=== PATIENT | female | born 1990 | race Caucasian/White ===

== ENCOUNTER 2019-12-12 19:59 | Emergency (ER) | payer OTHER ==
[2019-12-12 20:09] VITALS: RESP 16
--- NOTE | 2019-12-12 20:22 | ED ---
General Adult HPI <Oleksandr Henning - Last Filed: 12/13/19 05:05> - General Source: patient, EMS, RN notes reviewed, old records reviewed Mode of arrival: EMS Limitations: no limitations <Waldemar Gruber - Last Filed: 12/13/19 23:04> - General Chief complaint: Psychiatric Symptoms Stated complaint: Mental Health Time Seen by Provider: 12/12/19 20:00 - History of Present Illness Initial comments: This is a 29-year-old female who presents emergency Department with a past medical history significant for cocaine abuse alcohol abuse and bipolar. Patient states she hasn't used any cocaine in 6 months. Patient states she did drink today for the first time in 6 months. Patient states she also started taking some medicine last Saturday for her acne and it did say on the label that a side effect is depression. Patient states she has been feeling significantly more depressed over the last 3 days and then when she drank today started having suicidal thoughts and the gaming cage worker was contacted gaming cage worker heard the statements then petitioned the patient to be evaluated. Patient states at the moment she's not sure if she suicidal but she did cut herself superficially on the left forearm with scissors. Patient states she has no physical complaints today. Patient denies any chest pain difficulty breathing shortest breath per patient denies any fever chills or cough. Patient denies any abdominal pain patient denies nausea vomiting diarrhea. Patient states she is not sexually active (Waldemar Tellez) Review of Systems ROS Other: All systems not noted in ROS Statement are negative. <Oleksandr Henning - Last Filed: 12/13/19 05:05> ROS Other: All systems not noted in ROS Statement are negative. <Waldemar Gruber - Last Filed: 12/13/19 23:04> ROS Statement: Those systems with pertinent positive or pertinent negative responses have been documented in the HPI. Past Medical History Past Medical History: No Reported History History of Any Multi-Drug Resistant Organisms: None Reported Past Surgical History: Section Past Psychological History: Anxiety, Bipolar, Depression, PTSD Smoking Status: Smoker, current status unknown Past Alcohol Use History: Rare Past Drug Use History: Cocaine <Waldemar Gruber - Last Filed: 12/13/19 23:04> General Exam Limitations: no limitations <Waldemar Gruber - Last Filed: 12/13/19 23:04> - General Exam Comments Initial Comments: GENERAL: Patient is well-developed and well-nourished. Patient is nontoxic and well- hydrated and is in no acute distress. ENT: Neck is soft and supple. No significant lymphadenopathy is noted. Oropharynx is clear. Moist mucous membranes. Neck has full range of motion without eliciting any pain. EYES: The sclera were anicteric and conjunctiva were pink and moist. Extraocular movements were intact and pupils were equal round and reactive to light. Eye lids were unremarkable. PULMONARY: Unlabored respirations. Good breath sounds bilaterally. No audible rales rhonchi or wheezing was noted. CARDIOVASCULAR: There is a regular rate and rhythm without any murmurs gallops or rubs. ABDOMEN: Soft and nontender with normal bowel sounds. SKIN: Skin is clear with no lesions or rashes and otherwise unremarkable. NEUROLOGIC: Patient is alert and oriented x3. Cranial nerves II through XII are grossly intact. Motor and sensory are also intact. Normal speech, volume and content. Symmetrical smile. MUSCULOSKELETAL: Normal extremities with adequate strength and full range of motion. LYMPHATICS: No significant lymphadenopathy is noted PSYCHIATRIC: Patient is tearful and does state that she is very depressed lately but denies definitively being suicidal at this time. (Waldemar Gruber) Course Vital Signs 12/12/19 12/13/19 20:02 05:21 Temperature 98.3 F 98.4 F Pulse Rate 85 86 Respiratory 16 16 Rate Blood Pressure 124/68 104/74 O2 Sat by Pulse 100 97 Oximetry Medical Decision Making <Waldemar Gruber - Last Filed: 12/13/19 23:04> - Medical Decision Making Dr. Turner will be taking over care of this patient at 11 PM (Waldemar Gruber) - Lab Data Lab Results 12/12/19 Range/Units 20:56 Urine Opiates Screen Not Detected (NotDetected) Ur Oxycodone Screen Not Detected (NotDetected) Urine Methadone Screen Not Detected (NotDetected) Ur Propoxyphene Screen Not Detected (NotDetected) Ur Barbiturates Screen Not Detected (NotDetected) U Tricyclic Antidepress Not Detected (NotDetected) Ur Phencyclidine Scrn Not Detected (NotDetected) Ur Amphetamines Screen Not Detected (NotDetected) U Methamphetamines Scrn Not Detected (NotDetected) U Benzodiazepines Scrn Not Detected (NotDetected) Urine Cocaine Screen Not Detected (NotDetected) U Marijuana (THC) Screen Not Detected (NotDetected) Disposition <Oleksandr Henning - Last Filed: 12/13/19 05:05> Is patient prescribed a controlled substance at d/c from ED?: No <Waldemar Gruber - Last Filed: 12/13/19 23:04> Clinical Impression: Mood disorder Disposition: HOME SELF-CARE Condition: Good Instructions (If sedation given, give patient instructions): Mood Disorders (ED) Referrals: Anita Ramos DO [Primary Care Provider] - 1-2 days
[2019-12-12 22:10] LABS: Amphetamine Screen,Urine Not Detected (NotDetected); Barbiturate Screen,Urine Not Detected (NotDetected); Benzodiazepines Screen,Urine Not Detected (NotDetected); Cocaine Screen,Urine Not Detected (NotDetected); Methadone Screen, Urine Not Detected (NotDetected); Opiate Screen,Urine Not Detected (NotDetected); Oxycodone Screen, Urine Not Detected (NotDetected); Phencyclidine Screen,Urine Not Detected (NotDetected); Tricyclic Antidepressant,Urine Not Detected (NotDetected); Urn Cannabinoid Scrn Not Detected (NotDetected)
[2019-12-13 05:22] VITALS: BP 104/74; PULSE 86; TEMP 98.4
== END 2019-12-13 05:35 | disposition home or self-care (01) ==
LOC: EC 19:59
DX: F32.9 Major depressive disorder, single episode, unspecified (principal); Z87.891 Personal history of nicotine dependence
CPT/HCPCS: 80306; 82075; 99285